=== PATIENT | female | born 1950 | race Caucasian/White ===

== ENCOUNTER 2016-11-16 08:41 | Inpatient (IN) | payer MEDICARE, BC, OTHER ==
[~2016-11-16 08:41] MED LIST: APPLE CIDER VI PO; ATIVAN1 M2 PO; CENTRUM SILVER1 EAC3 PO; GLUCOSAMINE; NEXIUM40 M1 PO; PHENTERMINE H37.5 M1 PO; SYNTHROID88 MC1 PO; TRAMADOL-ACETA1 EAC1 PO; VITAMIN B COMP1 EAC1 PO; VITAMIN D31000 UNI3 PO
[2016-11-18] MEDS ORDERED: LORTAB 10 MG-3473 M1 PO (18:05)
[2016-11-18 20:58] LABS: BASO % 0.3 % (0-2); EOS % 2.6 % (0-7); EOSINOPHIL ABSOLUTE COUNT 0.2 tho/cmm (0.0-0.7); HCT-HEMATOCRIT 33.2 % (34.0-49.0); HGB-HEMOGLOBIN 10.2 gm/dl (12.0-15.5); IMMATURE GRANULOCYTES ABSOLUTE 0.01 tho/cmm (0-0.03); IMMATURE GRANULOCYTES PERCENT 0.2 % (0-0.3); LYMPH % 25.9 % (20-45); LYMPH ABSOLUTE COUNT 1.7 tho/cmm (0.8-4.5); MCH (MEAN CORPUSCULAR HGB) 24.8 pg (28.0-32.0); MCHC MEAN CORPUSCULAR HGB CONC 30.7 % (32.0-36.0); MCV (MEAN CELL VOLUME) 80.6 fl (82.0-96.0); MEAN PLATELET VOLUME 10.2 cmc (9.4-12.4); MONO % 10.6 % (0-12); MONOCYTE ABSOLUTE COUNT 0.7 tho/cmm (0.0-1.2); NEUTROPHIL ABSOLUTE COUNT 3.9 tho/cmm (1.6-8.0); NEUTROPHIL-AUTOMATED 3.9 tho/cmm (1.6-8.0); NEUTROPHILS % 60.4 % (40-80); PLATELET COUNT 235 tho/cmm (150-450); RED BLOOD COUNT 4.12 mil/cmm (4.00-5.20); RED CELL DISTRIBUTION WIDTH 15.5 % (12.4-16.4); WHITE BLOOD COUNT 6.5 tho/cmm (4.0-10.0)
[2016-11-18 21:07] LABS: ANION GAP 12 mmol/L (0-20); BLOOD UREA NITROGEN 5 mg/dl (6-24); C-REACTIVE PROTEIN 3.4 mg/dl (0-0.9); CALCIUM 8.6 mg/dl (8.5-10.5); CARBON DIOXIDE-VENOUS 27 mmol/L (22-32); CHLORIDE 107 mmol/l (96-110); CREATININE 0.58 mg/dl (0.50-1.10); GLUCOSE 114 mg/dL (70-110); POTASSIUM 3.7 mmol/L (3.7-5.1); SODIUM 142 mmol/L (135-145); eGFR VALUE FOR BLACK >90 mL/Min
== END 2016-11-19 12:00 | DRG 327 ==
LOC: SHSB 08:41 → PACU 12:26 → OBGF 14:05
PROVIDERS: Nurse Practitioner Acute Care; ADMIT Surgery
PROC: 0BQS4ZZ (ICD-10-PCS; principal; 2016-11-19)
PROC: 0BQR4ZZ (ICD-10-PCS; 2016-11-19)
PROC: 0FT44ZZ Resection of Gallbladder, Percutaneous Endoscopic Approach (ICD-10-PCS; 2016-11-19)
DX: K44.9 Diaphragmatic hernia without obstruction or gangrene (principal); K80.10 Calculus of gallbladder with chronic cholecystitis without obstruction; I10 Essential (primary) hypertension; E66.9 Obesity, unspecified; K21.9 Gastro-esophageal reflux disease without esophagitis; Z87.891 Personal history of nicotine dependence; E78.2 Mixed hyperlipidemia; F41.9 Anxiety disorder, unspecified; F32.9 Major depressive disorder, single episode, unspecified; E03.9 Hypothyroidism, unspecified; K57.90 Diverticulosis of intestine, part unspecified, without perforation or abscess without bleeding; M19.90 Unspecified osteoarthritis, unspecified site; E55.9 Vitamin D deficiency, unspecified; R73.03 Prediabetes; Z68.38 Body mass index [BMI] 38.0-38.9, adult; R51 Headache; G47.00 Insomnia, unspecified; D64.9 Anemia, unspecified; R13.10 Dysphagia, unspecified
CPT/HCPCS: J0690; J1170; J1650; J2270; J2405; J3010; J3480; J7030; Q9967